=== PATIENT | female | born 1990 | race Caucasian/White ===

== ENCOUNTER 2016-10-19 23:40 | Emergency (ER) | payer OTHER ==
[~2016-10-19 23:40] MED LIST: AMBIEN PO; AMOXICILLIN PO; ANAPROX DS PO; ANTIDIARRHEAL2 MG; ANTIVERT PO; AZITHROMYCIN1 GM PO; BACTRIM DS TABL1 TA1; BACTRIM DS TABL1 TA2 PO; BACTROBAN15 GM; BENTYL10 M1; BENTYL20 MG PO; BIRTH CONTROL PILL PO; CLARITHROMYCIN500 MG PO; CLARITIN-D1 TAB.SR3 PO; FIORINAL 50-321 EACH PO; FLAGYL PO; FLONASE16 GM; FLOXIN10 ML OS; IBUPROFEN800 MG PO; KEFLEX500 M1; KEFLEX500 M1 PO; KEFLEX500 MG PO; LEVAQUIN PO; LORTAB 7.51 TAB 7.5/ PO; LOTRIMIN30 GM TOP; METROGEL-VAGINA70 GM VG; NO MEDICATIONS; NORCO 5/325 TAB1 TAB PO; OMEPRAZOLE40 MG PO; PHENERGAN PO; PHENERGAN25 MG PO; PREDNISONE PO; PRENATAL MULITV1 TAB PO; PRILOSEC PO; PYRIDIUM PO; TAMIFLU75 M1 DOB; TOPAMAX PO; TRAMADOL HCL50 M1 PO; TYLENOL #3 PO; ULTRAM PO; VICODIN 5/500 T1 TAB PO; VOLTAREN50 MG PO; XANAX PO; ZITHROMAX PO; ZITHROMAX1 G/PKT PO; ZOFRAN ODT4 MG; ZOFRAN ODT4 MG PO; ZOFRAN ODT4 MG/UDTAB PO; ZOFRANODT PO; ZOLOFT PO; [UNRECOGNIZED DRUG - OTHER]
[2016-10-20 00:15] LABS: URINE SOURCE CLEAN CATCH
[2016-10-20 00:18] LABS: BASOPHIL% 0.1 % (0-2.5); EOSINOPHIL# 0.1 X10e3 (0-0.7); EOSINOPHIL% 0.9 % (0.0-7.0); HEMATOCRIT 43.3 % (35.0-45.0); HEMOGLOBIN 14.7 gm/dL (12.0-16.0); LYMPHOCYTE# 0.7 X10e3 (1.0-3.5); LYMPHOCYTE% 7.3 % (17.0-45.0); MEAN CELL VOLUME 90.2 FL (83-96); MEAN CORPUSCULAR HEMOGLOBIN 30.5 PG (28-34); MEAN CORPUSCULAR HGB CONC 33.8 g/dL (30-36); MEAN PLATELET VOLUME 8.1 FL (6.5-11.5); MONOCYTE# 0.4 X10e3 (0-1.0); MONOCYTE% 4.8 % (3.0-12.0); NEUTROPHIL# 8.1 X10e3 (1.5-7.1); NEUTROPHIL% 86.9 % (40-75); PLATELET COUNT 150 X10e3 (140-420); RED BLOOD COUNT 4.81 X10e (3.90-5.30); WHITE BLOOD COUNT 9.3 X10e3 (4.0-10.5)
[2016-10-20 00:18] LABS: URINE APPEARANCE CLEAR; URINE BLOOD NEG (NEG); URINE COLOR YELLOW; URINE GLUCOSE NEG (NORM); URINE LEUKOCYTE ESTERASE NEG (NEG); URINE NITRATE NEG (NEG); URINE PROTEIN TRACE (NEG); URINE SPECIFIC GRAVITY 1.025 (1.003-1.035); URINE UROBILINOGEN 0.2 MG/DL (NORM)
[2016-10-20 00:19] LABS: DIFF IND NO
[2016-10-20 00:21] LABS: MICRO INDICATED? NO; URINE BILIRUBIN NEG (NEG); URINE KETONE 2+ (NEG)
[2016-10-20 00:27] LABS: INFLUENZA A NEG (NEG); INFLUENZA B NEG (NEG)
[2016-10-20 00:34] LABS: ALBUMIN SERUM 4.2 g/dL (3.5-5.0); ALKALINE PHOSPHATASE 50 U/L (32-92); ALT (SGPT) 13 U/L (10-40); AST (SGOT) 18 U/L (10-42); BILIRUBIN, DIRECT 0.1 mg/dL (0.0-0.2); BILIRUBIN,INDIRECT 0.7 mg/dL (0.0-0.9); BILIRUBIN,TOTAL 0.8 mg/dL (0.2-2.0); BLOOD UREA NITROGEN 14 mg/dL (9-23); CALCIUM SERUM 8.8 mg/dL (8.4-10.2); CARBON DIOXIDE 25 mmol/L (22-31); CHLORIDE 104 mmol/L (100-111); CREATININE SERUM 0.7 mg/dL (0.6-1.4); GLOM FILT RATE Estimated ABOVE60 mL/min (>60); GLUCOSE FASTING 98 mg/dL (70-110); LIPASE 28 U/L (22-51); POTASSIUM 3.6 mmol/L (3.5-5.1); PROTEIN TOTAL SERUM 6.9 g/dL (6.0-8.3); SODIUM 137 mmol/L (135-145)
== END 2016-10-20 01:28 | disposition home or self-care (01) ==
LOC: SED 23:40
PROVIDERS: Emergency Medicine
DX: R11.2 Nausea with vomiting, unspecified (principal); R19.7 Diarrhea, unspecified; F17.200 Nicotine dependence, unspecified, uncomplicated; Z88.1 Allergy status to other antibiotic agents; Z90.49 Acquired absence of other specified parts of digestive tract
CPT/HCPCS: 36415; 80048; 80076; 81003; 83690; 84703; 85025; 87804; 96361; 96374; 96375; 99284; J1885; J2405